=== PATIENT | male | born 1995 | race Caucasian/White ===

== ENCOUNTER 2020-08-05 13:29 | Observation (INO) ==
[2020-08-05 14:17] LABS: Basophils # (auto) 0.01 K/uL (0-0.2); Basophils % (auto) 0.1 %; Eosinophils # (auto) 0.01 K/uL (0-0.5); Eosinophils % (auto) 0.1 %; Hematocrit (blood only) 41.7 % (42-52); Hemoglobin 14.3 g/dL (14.0-18.0); Immature Granulocytes # (auto) 0.02 K/uL (0.00-0.02); Immature Granulocytes % (auto) 0.3 %; Lymphocytes # (auto) 1.25 K/uL (1.2-3.4); Mean Corpuscular Hgb Conc 34.3 g/dL (32-36); Mean Corpuscular Volume 87.4 fL (80-100); Mean Platelet Volume 9.4 fL (7.4-10.4); Monocytes # (auto) 0.58 K/uL (0.11-0.59); Monocytes % (auto) 7.4 %; Neutrophils # (auto) 5.96 K/uL (1.4-6.5); Neutrophils % (auto) 76.1 %; Platelet Count 293 K/uL (130-400); RDW Coefficient of Variation 12.7 % (11.5-14.5); Red Blood Count 4.77 M/uL (4.7-6.1); White Blood Count 7.83 K/uL (4.8-10.8)
--- NOTE | 2020-08-05 14:27 | Emergency Department Note ---
Impression & Plan Pericarditis, Subaortic stenosis, Chest pain, Elevated troponin, Myocarditis ED Provider Note NAME: JULIANA NUNN AGE: 25 SEX: M : 1995 ARRIVES VIA: Walk-In INFORMANT: Patient ED PROVIDER(S): Niles Bolanos DO CHIEF COMPLAINT: Chest pain HPI: Patient is a 25-year-old male with a past medical history of open heart surgery to remove a mass that presents the ER for left upper back pain radiating through to his anterior chest wall and up his left neck. Been present since this past Wednesday. Admits that it is a dull ache. 2 out of 10. Better with sitting up and moving around. Worse with lying flat. Denies any shortness of breath. No belly pain nausea vomiting or diarrhea. He notes he does have a history of any previous aortic issue secondary to the surgery. No other exacerbating or remitting factors. No cough or runny nose. No loss of taste or smell. Patient denies diabetes, hypertension, hyperlipidemia, CAD, history of sudden at a young age, and smoking. ROS: See above HPI for pertinent positives & negatives. A total of 10 systems reviewed and were otherwise negative. PAST MEDICAL HISTORY:See Below PAST SURGICAL HISTORY:See Below FAMILY HISTORY:See Below SOCIAL HISTORY:See Below HOME MEDICATIONS:See Below ALLERGIES:See Below VITALS:See Below PHYSICAL EXAMINATION: GENERAL: Sitting up in bed, alert, well appearing, well nourished, no distress, non-toxic EYE EXAM: normal conjunctiva. PERRL and EOM's grossly intact. OROPHARYNX: Mask in place NECK: supple, no nuchal rigidity, no adenopathy, non-tender LUNGS: Clear to auscultation. Normal chest wall mechanics HEART: no murmurs, S1 normal and S2 normal ABDOMEN: abdomen soft, non-tender, normo-active bowel sounds, no masses, no rebound or guarding. BACK: Back is symmetrical on inspection and there is no deformity, no midline tenderness, no CVA tenderness. SKIN: no rashes and no bruising UPPER EXTREMITIES: upper extremities are grossly normal. Pulses are equal bi lateral. Flexion-extension of bilateral shoulders, elbows, wrist intact. LOWER EXTREMITIES: No pitting edema. Calves are equal bilateral NEURO EXAM: Normal sensorium, cranial nerves II-XII grossly intact, normal speech, no gross weakness of arms, no gross weakness of legs. MEDICAL DECISION MAKING: Patient is a 25-year-old male who presents the ER for 2 days worth of back pain rating through to his anterior chest. IV was established blood work is obtained. Labs show no significant leukocytosis or anemia. INR was unremarkable. BMP was unremarkable. T bili was slightly elevated at 1.7. LFTs were normal. Troponin was elevated 0.192. Lipase was normal. UA was clean. Covid was negative. EKG was not significantly changed from his previous. With his history of aortic issues per his own report has had no records in the presentation CT dissection study was obtained and showed no dissection or PEs. Discussed the case with Dr. Josué Christianson from cardiology who agreed with a stat echo and holding on heparin at this time as history and presentation is most consistent at this point with a likely myopericarditis. Patient was discussed with the hospitalist and will be admitted for further work-up. He was given a dose of aspirin. Doubt ACS and will await echo due to his age and risk factors. Triage Nursing notes reviewed. Prior medical records reviewed Vital Signs: reviewed and remarkable for hypertensive Differential diagnosis: Differential diagnoses includes but is not limited to acute coronary syndrome, myocardial infarction, pericarditis, pulmonary embolus, aortic dissection, pneumonia, pneumothorax, musculoskeletal, shingles, esophageal. ER treatment provided: See below Diagnostics interpreted by me: ECG: Sinus rhythm rate 89 Left axis Left bundle branch block ST depressions in the lateral leads as well as the high lateral leads with flipped T waves T wave inversion in aVL is new in comparison to old on July 23 Cardiac Monitoring: An order was placed for continuous cardiac monitoring. The monitor shows a rate of 85 with sinus rhythm. Laboratory studies: As stated above and show below. Imaging studies: CT dissection study was unremarkable Consultation(s): Discussed with [facility] cardiology as stated above in MDM Discussed with Elaine sherman for admission ED COURSE: Procedures: none Past Med/Surg History Medical History (Updated 08/05/20 @ 20:43 by Niles Bolanos DO) LBBB (left bundle branch block) Subaortic stenosis s/p resection and septal myomectomy Family History Denies family history of Heart disease Social History Smoking Status: Never smoker Hx Alcohol Use: Yes Alcohol Intake Frequency: 2-4 x/Month Feels Safe at Home: Yes Allergies Allergies Allergy/AdvReac Type Severity Reaction Status Date / Time diphenhydramine AdvReac Intermediate makes hyper Unverified 08/05/20 15:41 [From Benadryl] Home Meds Home Medications Medication Instructions Recorded Confirmed peppermint oil [IBgard] 90 mg PO BID PRN 08/05/20 08/05/20 Results & Data (ED) Vital Signs Vital Signs - 24 hr 08/05/20 13:51 08/05/20 14:00 08/05/20 14:02 Temperature 36.9 C Temperature Source Oral Pulse Rate 89 92 H Pulse Rate from SpO2 Sensor 92 H Respiratory Rate 18 20 Blood Pressure 141/84 H 156/96 H Blood Pressure Mean 103 109 Pulse Oximetry 100 100 Oxygen Delivery Method Room Air Sepsis Recent Fever Within 48 Hours No Sepsis New/Unexplained Change in Mental Status No Sepsis Action Taken by Nursing No Action Required 08/05/20 14:07 08/05/20 14:13 08/05/20 14:14 Temperature Temperature Source Oral Pulse Rate 82 Pulse Rate from SpO2 Sensor Respiratory Rate 17 Blood Pressure Blood Pressure Mean Pulse Oximetry Oxygen Delivery Method Room Air Sepsis Recent Fever Within 48 Hours Sepsis New/Unexplained Change in Mental Status Sepsis Action Taken by Nursing 08/05/20 14:30 08/05/20 15:00 08/05/20 15:30 Temperature Temperature Source Pulse Rate 81 96 H 80 Pulse Rate from SpO2 Sensor 83 90 79 Respiratory Rate 18 16 17 Blood Pressure 136/86 154/97 H 142/88 H Blood Pressure Mean 97 110 101 Pulse Oximetry 99 100 100 Oxygen Delivery Method Sepsis Recent Fever Within 48 Hours Sepsis New/Unexplained Change in Mental Status Sepsis Action Taken by Nursing 08/05/20 16:00 08/05/20 16:30 08/05/20 17:00 Temperature Temperature Source Pulse Rate 85 83 84 Pulse Rate from SpO2 Sensor 85 88 Respiratory Rate 18 19 22 Blood Pressure 137/79 147/87 H Blood Pressure Mean 100 97 Pulse Oximetry 100 99 Oxygen Delivery Method Sepsis Recent Fever Within 48 Hours Sepsis New/Unexplained Change in Mental Status Sepsis Action Taken by Nursing 08/05/20 17:30 08/05/20 18:00 08/05/20 18:30 Temperature Temperature Source Pulse Rate 81 85 82 Pulse Rate from SpO2 Sensor 80 83 81 Respiratory Rate 19 15 13 Blood Pressure 123/77 125/81 132/76 Blood Pressure Mean 91 93 104 Pulse Oximetry 100 98 100 Oxygen Delivery Method Sepsis Recent Fever Within 48 Hours Sepsis New/Unexplained Change in Mental Status Sepsis Action Taken by Nursing 08/05/20 19:00 08/05/20 19:30 08/05/20 20:00 Temperature Temperature Source Pulse Rate 83 92 H 75 Pulse Rate from SpO2 Sensor 82 85 76 Respiratory Rate 15 19 16 Blood Pressure 127/74 117/69 145/83 H Blood Pressure Mean 92 90 89 Pulse Oximetry 99 91 98 Oxygen Delivery Method Sepsis Recent Fever Within 48 Hours Sepsis New/Unexplained Change in Mental Status Sepsis Action Taken by Nursing 08/05/20 20:30 Temperature Temperature Source Pulse Rate 80 Pulse Rate from SpO2 Sensor 81 Respiratory Rate 16 Blood Pressure 114/70 Blood Pressure Mean 81 Pulse Oximetry 99 Oxygen Delivery Method Sepsis Recent Fever Within 48 Hours Sepsis New/Unexplained Change in Mental Status Sepsis Action Taken by Nursing Laboratory Data Result diagrams: 08/05/20 13:59 08/05/20 13:59 Lab Results 08/05/20 08/05/20 08/05/20 Range/Units 13:59 13:59 13:59 WBC 7.83 (4.8-10.8) K/uL RBC 4.77 (4.7-6.1) M/uL Hgb 14.3 (14.0-18.0) g/dL Hct 41.7 L (42-52) % MCV 87.4 (80-100) fL MCH 30.0 (25-34) pg MCHC 34.3 (32-36) g/dL RDW Std Deviation 41.0 (36.4-46.3) fL RDW Coeff of Cari 12.7 (11.5-14.5) % Plt Count 293 (130-400) K/uL MPV 9.4 (7.4-10.4) fL Immature Gran % (Auto) 0.3 % Neut % (Auto) 76.1 % Lymph % (Auto) 16.0 % [place] % (Auto) 7.4 % Eos % (Auto) 0.1 % Baso % (Auto) 0.1 % Neut # (Auto) 5.96 (1.4-6.5) K/uL Lymph # (Auto) 1.25 (1.2-3.4) K/uL [place] # (Auto) 0.58 (0.11-0.59) K/uL Eos # (Auto) 0.01 (0-0.5) K/uL Baso # (Auto) 0.01 (0-0.2) K/uL Immature Gran # (Auto) 0.02 (0.00-0.02) K/uL ESR (0-14) mm/hr PT 10.8 (9.0-12.0) Seconds INR 1.0 (0.9-1.1) APTT 28.2 (21.0-31.0) Seconds PTT Ratio 1.0 Sodium 137 (136-145) mmol/L Potassium 3.5 (3.5-5.1) mmol/L Chloride 104 (98-107) mmol/L Carbon Dioxide 28 (21-32) mmol/L Anion Gap 5.0 (3-11) BUN 8 (7-18) mg/dl Creatinine 0.82 (0.6-1.4) mg/dl Est Cr Clr Drug Dosing 141.0 ml/min Est GFR ( Amer) 141.5 Est GFR (Non-Af Amer) 122.0 BUN/Creatinine Ratio 10.3 (10-20) Glucose 84 (70-99) mg/dl Calcium 9.4 (8.5-10.1) mg/dl Total Bilirubin 1.7 H (0.2-1) mg/dl AST 10 L (15-37) U/L ALT 21 (12-78) U/L Alkaline Phosphatase 70 (45-117) U/L Troponin I 0.192 H* (0-0.045) ng/ml C-Reactive Protein (0-0.29) mg/dl Total Protein 8.3 H (6.4-8.2) gm/dl Albumin 4.8 (3.4-5.0) gm/dl Globulin 3.5 (2.5-4.0) gm/dl Albumin/Globulin Ratio 1.4 (0.9-2) Lipase 76 (73-393) U/L Urine Opiates Screen (Neg) Ur Methadone, Qual (Neg) Urine Barbiturates (Neg) Ur Phencyclidine (PCP) (Neg) U Amphetamin/Meth Scrn (Neg) MDMA (Ecstasy) Screen (Neg) U Benzodiazepines Scrn (Neg) Ur Cocaine Metabolite (Neg) U Marijuana (THC) Screen (Neg) SARS-CoV-2 Ag (Rapid) (Negative) 08/05/20 08/05/20 08/05/20 Range/Units 14:04 15:59 16:31 WBC (4.8-10.8) K/uL RBC (4.7-6.1) M/uL Hgb (14.0-18.0) g/dL Hct (42-52) % MCV (80-100) fL MCH (25-34) pg MCHC (32-36) g/dL RDW Std Deviation (36.4-46.3) fL RDW Coeff of Cari (11.5-14.5) % Plt Count (130-400) K/uL MPV (7.4-10.4) fL Immature Gran % (Auto) % Neut % (Auto) % Lymph % (Auto) % [place] % (Auto) % Eos % (Auto) % Baso % (Auto) % Neut # (Auto) (1.4-6.5) K/uL Lymph # (Auto) (1.2-3.4) K/uL [place] # (Auto) (0.11-0.59) K/uL Eos # (Auto) (0-0.5) K/uL Baso # (Auto) (0-0.2) K/uL Immature Gran # (Auto) (0.00-0.02) K/uL ESR 4 (0-14) mm/hr PT (9.0-12.0) Seconds INR (0.9-1.1) APTT (21.0-31.0) Seconds PTT Ratio Sodium (136-145) mmol/L Potassium (3.5-5.1) mmol/L Chloride (98-107) mmol/L Carbon Dioxide (21-32) mmol/L Anion Gap (3-11) BUN (7-18) mg/dl Creatinine (0.6-1.4) mg/dl Est Cr Clr Drug Dosing ml/min Est GFR ( Amer) Est GFR (Non-Af Amer) BUN/Creatinine Ratio (10-20) Glucose (70-99) mg/dl Calcium (8.5-10.1) mg/dl Total Bilirubin (0.2-1) mg/dl AST (15-37) U/L ALT (12-78) U/L Alkaline Phosphatase (45-117) U/L Troponin I (0-0.045) ng/ml C-Reactive Protein 0.73 H (0-0.29) mg/dl Total Protein (6.4-8.2) gm/dl Albumin (3.4-5.0) gm/dl Globulin (2.5-4.0) gm/dl Albumin/Globulin Ratio (0.9-2) Lipase (73-393) U/L Urine Opiates Screen Neg (Neg) Ur Methadone, Qual Neg (Neg) Urine Barbiturates Neg (Neg) Ur Phencyclidine (PCP) Neg (Neg) U Amphetamin/Meth Scrn Neg (Neg) MDMA (Ecstasy) Screen Neg (Neg) U Benzodiazepines Scrn Neg (Neg) Ur Cocaine Metabolite Neg (Neg) U Marijuana (THC) Screen Neg (Neg) SARS-CoV-2 Ag (Rapid) (Negative) 08/05/20 Range/Units Unknown WBC (4.8-10.8) K/uL RBC (4.7-6.1) M/uL Hgb (14.0-18.0) g/dL Hct (42-52) % MCV (80-100) fL MCH (25-34) pg MCHC (32-36) g/dL RDW Std Deviation (36.4-46.3) fL RDW Coeff of Cari (11.5-14.5) % Plt Count (130-400) K/uL MPV (7.4-10.4) fL Immature Gran % (Auto) % Neut % (Auto) % Lymph % (Auto) % [place] % (Auto) % Eos % (Auto) % Baso % (Auto) % Neut # (Auto) (1.4-6.5) K/uL Lymph # (Auto) (1.2-3.4) K/uL [place] # (Auto) (0.11-0.59) K/uL Eos # (Auto) (0-0.5) K/uL Baso # (Auto) (0-0.2) K/uL Immature Gran # (Auto) (0.00-0.02) K/uL ESR (0-14) mm/hr PT (9.0-12.0) Seconds INR (0.9-1.1) APTT (21.0-31.0) Seconds PTT Ratio Sodium (136-145) mmol/L Potassium (3.5-5.1) mmol/L Chloride (98-107) mmol/L Carbon Dioxide (21-32) mmol/L Anion Gap (3-11) BUN (7-18) mg/dl Creatinine (0.6-1.4) mg/dl Est Cr Clr Drug Dosing ml/min Est GFR ( Amer) Est GFR (Non-Af Amer) BUN/Creatinine Ratio (10-20) Glucose (70-99) mg/dl Calcium (8.5-10.1) mg/dl Total Bilirubin (0.2-1) mg/dl AST (15-37) U/L ALT (12-78) U/L Alkaline Phosphatase (45-117) U/L Troponin I (0-0.045) ng/ml C-Reactive Protein (0-0.29) mg/dl Total Protein (6.4-8.2) gm/dl Albumin (3.4-5.0) gm/dl Globulin (2.5-4.0) gm/dl Albumin/Globulin Ratio (0.9-2) Lipase (73-393) U/L Urine Opiates Screen (Neg) Ur Methadone, Qual (Neg) Urine Barbiturates (Neg) Ur Phencyclidine (PCP) (Neg) U Amphetamin/Meth Scrn (Neg) MDMA (Ecstasy) Screen (Neg) U Benzodiazepines Scrn (Neg) Ur Cocaine Metabolite (Neg) U Marijuana (THC) Screen (Neg) SARS-CoV-2 Ag (Rapid) Negative (Negative) Administered Medications Discontinued Medications Aspirin (Aspirin Chew 324 Mg) 324 mg PO NOW STA Stop: 08/05/20 15:23 Last Admin: 08/05/20 15:48 Dose: 324 mg Documented by: [id number] Ioversol (Optiray 320 125ml) 121 ml IV ONCE ONE Stop: 08/05/20 14:55 Last Admin: 08/05/20 14:55 Dose: 121 ml Documented by: [id number] Discharge Plan Visit Data Chief Complaint: Chest Pain Stated Complaint: CHEST PAIN RADIATING TO SHOULDER BLADE AND NECK ED Provider: Niles Bolanos Discharge Problem: Pericarditis, Subaortic stenosis, Chest pain, Elevated troponin, Myocarditis Patient Disposition: Admitted As Inpatient Forms Stand Alone Forms: [facility] Prescriptions Prescriptions: No Action IBgard 90 mg Capsule,Delayed,Extend.Release 90 mg PO BID PRN (Reason: IBS) RF: 0 Referrals Referrals: Bienvenido Fernandez [Primary Care Provider] - Discharge Problem: Pericarditis Qualifiers: Pericarditis type: unspecified type Chronicity: acute Qualified Code(s): I30.9 - Acute pericarditis, unspecified Chest pain Qualifiers: Chest pain type: unspecified Qualified Code(s): R07.9 - Chest pain, unspecified Myocarditis Qualifiers: Myocarditis type: unspecified Chronicity: acute Qualified Code(s): I40.9 - Acute myocarditis, unspecified
[2020-08-05 14:28] LABS: Partial Thromboplastin Time 28.2 Seconds (21.0-31.0); Prothrombin Time 10.8 Seconds (9.0-12.0)
--- NOTE | 2020-08-05 14:29 | XRay Report ---
XR chest 1V portable HISTORY: 25 years-old Male Chest Pain acute atypical chest pain COMPARISON: None TECHNIQUE: Portable AP view the chest FINDINGS: Sternotomy wires. Cardiomediastinal and hilar silhouettes are within normal limits. There is no pneum othorax, pleural effusion, airspace consolidation or overt pulmonary edema. Bones of the chest appear grossly intact. IMPRESSION: No acute process. ACT 112: Negative or not required by law. The above report was generated using voice recognition software. It may contain grammatical, syntax o r spelling errors. Electronically signed by: Alfonzo Warner M.D. 08/05/2020 2:27 PM
[2020-08-05 14:36] LABS: Albumin Level 4.8 gm/dl (3.4-5.0); BUN Creatinine Ratio 10.3 (10-20); Calcium 9.4 mg/dl (8.5-10.1); Est GFR (African American) 141.5; Potassium 3.5 mmol/L (3.5-5.1)
[2020-08-05 14:47] LABS: Albumin Globulin Ratio 1.4 (0.9-2); Bilirubin,Total 1.7 mg/dl (0.2-1); Globulin 3.5 gm/dl (2.5-4.0); Total Protein 8.3 gm/dl (6.4-8.2); Troponin I 0.192 ng/ml (0-0.045)
[2020-08-05] MEDS ORDERED: OPTIRAY 320 125ml IV ONE (14:54)
--- NOTE | 2020-08-05 15:14 | CT Scan Report ---
CT ANGIOGRAM OF THE CHEST COMBO CLINICAL HISTORY: Atypical chest pain. COMPARISON STUDY: Chest x-ray dated 08/05/2020. TECHNIQUE: Before and following the IV administration of 121 cc of Optiray 320, CT angiogram of the c hest was performed from the thoracic inlet to the upper abdomen utilizing the dissection protocol. Im ages are reviewed in the axial, sagittal, and coronal planes. 3-D MIPS images are created and assesse d. IV contrast was administered without complication. A dose lowering technique was utilized adherin g to the principles of ALARA. CT DOSE: 737.78 mGy.cm FINDINGS: Thyroid: Imaged portions of the thyroid gland are normal in size and attenuation. Thoracic aorta: No intramural hematoma is seen on the unenhanced series. The thoracic aorta is normal in caliber and demonstrates 4-vessel variant arch anatomy. The left vertebral artery arises directly from the thoracic aorta. The arch vessels are widely patent. No dissection is seen. Pulmonary vasculature: The pulmonary trunk is normal in caliber. There are no filling defects identif ied in the main, lobar, or segmental pulmonary vessels to suggest pulmonary embolus. Heart: The patient is status post midline sternotomy. The heart is normal in size and without pericar dial effusion. Lungs and pleural spaces: The lungs and pleural spaces are clear. The trachea and central airways are patent. Mediastinum: There is no mediastinal lymphadenopathy. Reyna: Clear. Axillae: There is no axillary lymphadenopathy. Upper abdomen: Partially visualized upper abdominal viscera is within normal limits. Skeletal structures: No lytic or blastic bony lesions are seen. IMPRESSION: 1. Unremarkable CT angiogram of the thoracic aorta. 2. There is no evidence of pulmonary embolus in the main, lobar, or segmental pulmonary arteries. 3. The lungs are clear. ACT 112: Negative or not required by law. Electronically signed by: Dominguez Schmidt M.D. 08/05/2020 3:08 PM
[2020-08-05] MEDS ORDERED: ASPIRIN CHEW 324 MG PO STA (15:22)
[2020-08-05 17:02] LABS: Amphetamines+Metham, Urine Neg (Neg); Barbiturates, Urine Neg (Neg); Benzodiazepine, Urine Neg (Neg); Cocaine, Urine Neg (Neg); MDMA (Ecstacy), Urine Neg (Neg); Methadone, Urine Neg (Neg); Opiate, Urine Neg (Neg); Phencyclidine, Urine Neg (Neg)
--- NOTE | 2020-08-05 17:28 | Cardiology Consultation ---
Date of Consultation August 05, 2020 Assessment & Plan (1) Chest pain: (2) Elevated troponin: (3) Subaortic stenosis: (4) LBBB (left bundle branch block): 25-year-old patient admitted with pleuritic/positional chest discomfort. Initial troponin mildly elevated and nonspecific. Echocardiogram without new regional wall motion abnormality. No pericardial effusion. CT angiogram of the chest without evidence of aortic pathology or pulmonary embolus. COVID-19 testing negative at this time. Patient is afebrile with normal WBC count. Pleuropericarditis suspected with mildly elevated CRP. Sedimentation rate pending at this time. Add colchicine 0.6 mg twice daily. Trend cardiac enzymes x3 sets. Observation on telemetry overnight. History of Present Illness Reason for Consultation: Chest pain, elevated troponin, history of congenital heart disease Requesting Physician: Elaine PEREZ Attending Physician: Shanice Bird History of Present Illness 25-year-old patient with history of subaortic membrane status post resection and during his teenage years presented to the emergency department with left shoulder, scapular, and chest discomfort. He developed left scapular discomfort at approximately 11:45 PM 08/04/2020. Describes a pinching sensation with travel to his shoulder, anterior chest, and neck. There were associated palpitations. He was aware of "heart pounding". He then noted a tightness. Discomfort worse when lying supi ne and improved with sitting upright. The discomfort waxed and waned throughout the evening. He went to work this morning with mild pain. He walked nearly 3 miles however due to mild discomfort he contacted the cardiology office for further advice. It was recommended he proceed to the emergency department. In the ER, initial troponin mildly elevated. Discomfort has improved down to 1/10. He is currently seated upright and comfortable. Requesting diet as he has not eaten today. Denies orthopnea or PND. No cough, sick contacts, fever, or chills. COVID-19 testing is negative. Mildly elevated C-reactive protein. Preliminary review of bedside 2D transthoracic echocardiogram demonstrates preserved LV systolic function with abnormal septal motion secondary to left bundle branch block. The estimated ejection fraction is 60 to 65%. Mild to moderate aortic regurgitation. Isolated basal septal hypertrophy. No LVOT obstruction. Findings unchanged when compared to most recent echocardiogram report dated 2017. Allergies Allergy/AdvReac Type Severity Reaction Status Date / Time diphenhydramine AdvReac Intermediate makes hyper Unverified 08/05/20 15:41 [From Benadryl] Home Medications Medication Instructions Recorded Confirmed Type peppermint oil [IBgard] 90 mg PO BID PRN 08/05/20 08/05/20 History Patient History Medical History (Updated 08/05/20 @ 20:43 by Niles Bolanos DO) LBBB (left bundle branch block) Subaortic stenosis s/p resection and septal myomectomy Family History Denies family history of Heart disease Social History Smoking Status: Never smoker Second Hand Exposure: No; Tobacco Cessation Education Requested by Patient: No Hx Alcohol Use: Yes Alcohol type: beer Alcohol Intake Frequency: 2-4 x/Month Hx Substance Use: No Preferred Language: [place]serratian Communication Ability: Effective Medical Instrument Technician Required: No Beliefs That Will Affect Care: None Current Living Situation: Significant Other Other Information That Helps Us Care for You: No Feels Safe at Home: Yes Safety Concerns: Feels Safe At This Time Assistive Devices: None Review of Systems Review of Systems: All systems reviewed & are unremarkable except as noted in HPI & below Physical Exam Constitutional: well developed and well nourished; no acute distress Respiratory: normal respiratory effort, lungs clear to auscultation no respiratory distress and no labored breathing Auscultation: no crackles, no rales, no rhonchi and no wheezes Cardiovascular: Heart Sounds: normal S1, normal S2 and + murmur (2/6 systolic ejection murmur at the base) Vessels: no JVD and no carotid bruit Extremities: no edema Gastrointestinal (Abdomen): Inspection/Auscultation: abdomen normal to inspection and normal bowel sounds; abdomen not distended Percussion/Palpation: abdomen nontender, no guarding, abdomen not rigid and + abdomen not soft Skin: no rashes, warm and dry Neurologic: PERRL, EOMI, accommodation nl, no face palsy, no dysarthria Motor/Sensory: no tremor Psychiatric: A+Ox3, euthymic affect Results & Data ([facility]) Vital Signs (Past 12 Hours) Vital Signs Temp Pulse Resp BP Pulse Ox 08/05/20 16:30 83 19 08/05/20 16:00 85 18 137/79 100 08/05/20 15:30 80 17 142/88 H 100 08/05/20 15:00 96 H 16 154/97 H 100 08/05/20 14:30 81 18 136/86 99 08/05/20 14:07 82 17 08/05/20 14:00 92 H 20 156/96 H 100 08/05/20 13:51 36.9 C 89 18 141/84 H 100
--- NOTE | 2020-08-05 17:49 | History & Physical Report ---
Date of Service August 05, 2020 Assessment & Plan (1) Chest pain: (2) Elevated troponin: (3) Subaortic stenosis: -Admit to telemetry -Patient presenting from home with reports of left chest, left shoulder, left scapular pain that is noted to be significantly worse when lying down and imp roves with sitting up -History of subaortic stenosis s/p resection and septal myomectomy in 2007 -Troponin 0.192, EKG shows an unchanged LBBB -CTA chest negative for PE and acute aortic abnormality -Echo negative for pericardial effusion, no wall motion abnormality -? Pleuropericarditis; mildly elevated CRP 0.73, ESR pending -Serial cardiac enzymes -Cardiology consult, input appreciated -started patient on colchicine (4) DVT prophylaxis: -SCDs History of Present Illness Chief Complaint: Chest pain Primary Care Provider: Bienvenido Fernandez 25-year-old male with PMH subaortic stenosis s/p resection and septal myomectomy in 2007 who presents the ED for evaluation of chest pain. Patient reports that yesterday, he developed left chest, left shoulder, left scapular pain. Pain was worse whenever he laid flat to try to sleep last evening. Reports pain improved with sitting up. Patient denies any associated shortness of breath. Reports a pounding heartbeat. No lightheadedness, dizziness, diapho resis, syncopal events. Reports he otherwise has been feeling well recently. No other recent illnesses, fevers, chills. He denies abdominal pain, nausea, vomiting, diarrhea. No urinary symptoms. In the ED, troponin mildly elevated 0.192. EKG shows an unchanged LBBB. CTA chest negative for PE and other acute findings. Patient is hemodynamically stable. He was given a full dose aspirin. Patient reports he is currently chest pain-free. Allergies Allergy/AdvReac Type Severity Reaction Status Date / Time diphenhydramine AdvReac Intermediate makes hyper Unverified 08/05/20 15:41 [From Benadryl] Home Medications Medication Instructions Recorded Confirmed Type peppermint oil [IBgard] 90 mg PO BID PRN 08/05/20 08/05/20 History Past Med/Surg History Medical History (Updated 08/05/20 @ 20:43 by Niles Bolanos DO) LBBB (left bundle branch block) Subaortic stenosis s/p resection and septal myomectomy Family History Denies family history of Heart disease Social History Smoking Status: Never smoker Second Hand Exposure: No; Tobacco Cessation Education Requested by Patient: No Hx Alcohol Use: Yes Alcohol type: beer Alcohol Intake Frequency: 2-4 x/Month Hx Substance Use: No Preferred Language: Bur[place]ian Communication Ability: Effective Detail Drafter Required: No Beliefs That Will Affect Care: None Current Living Situation: Significant Other Other Information That Helps Us Care for You: No Feels Safe at Home: Yes Safety Concerns: Feels Safe At This Time Assistive Devices: None Review of Systems Review of Systems: ROS per HPI, all other systems reviewed and negative Physical Exam Constitutional: WD/WN, vitals as above Eyes: PERRL, conjunctivae normal, anicteric sclerae ENMT: external ear and nose normal, oropharynx normal Respiratory: normal respiratory effort, lungs clear to auscultation Cardiovascular: Rate/Rhythm: regular rate and regular rhythm Vessels: normal peripheral pulses Extremities: no edema Gastrointestinal (Abdomen): normal bowel sounds, soft, nontender, no hepatosplenomegaly Musculoskeletal: no cyanosis or clubbing, extremities motor strength 5/5 Skin: no rashes, warm and dry Neurologic: PERRL, EOMI, accommodation nl, no face palsy, no dysarthria Psychiatric: A+Ox3, euthymic affect Results & Data Results & Data ([facility]) Vital Signs (Past 12 Hours) Vital Signs Temp Pulse Resp BP Pulse Ox 08/05/20 16:30 83 19 08/05/20 16:00 85 18 137/79 100 08/05/20 15:30 80 17 142/88 H 100 08/05/20 15:00 96 H 16 154/97 H 100 08/05/20 14:30 81 18 136/86 99 08/05/20 14:07 82 17 08/05/20 14:00 92 H 20 156/96 H 100 08/05/20 13:51 36.9 C 89 18 141/84 H 100 Laboratory Results Short CBC 08/05/20 Range/Units 13:59 WBC 7.83 (4.8-10.8) K/uL Hgb 14.3 (14.0-18.0) g/dL Hct 41.7 L (42-52) % Plt Count 293 (130-400) K/uL BMP 08/05/20 13:59 Sodium 137 Potassium 3.5 Chloride 104 Carbon Dioxide 28 BUN 8 Creatinine 0.82 Glucose 84 Calcium 9.4 Cardiac Enzymes 08/05/20 Range/Units 13:59 Troponin I 0.192 H* (0-0.045) ng/ml Liver Function 08/05/20 Range/Units 13:59 Total Bilirubin 1.7 H (0.2-1) mg/dl AST 10 L (15-37) U/L ALT 21 (12-78) U/L Alkaline Phosphatase 70 (45-117) U/L Albumin 4.8 (3.4-5.0) gm/dl Diagnostic Findings CXR IMPRESSION: No acute process. CTA CHEST IMPRESSION: 1. Unremarkable CT angiogram of the thoracic aorta. 2. There is no evidence of pulmonary embolus in the main, lobar, or segmental pulmonary arteries. 3. The lungs are clear. Code Status & VTE Plan VTE Prophylaxis Plan VTE Prophylaxis will be ordered: Yes Supervising Physician Co-Signing Physician Notes Patient is a 25-year-old male with history of subaortic stenosis S/P resection and septal myomectomy, irritable bowel syndrome and other medical problems presents with history of positional left-sided chest pain. He states that the chest pain worsens when lying down. His pain radiated to the left shoulder/scapular region. He denies any nausea, diaphoresis, shortness of breath, syncope, recent infections, fever, chills. Echo showed no wall motion abnormality. EKG showed chronic left bundle branch block. Initial troponin mildly elevated. On exam patient is thin, no apparent distress, normocephalic atraumatic, lungs are clear to auscultation, normal breath sounds, S1-S2,+ murmur, no pedal edema, abdomen soft, nontender, normal bowel sounds, alert, awake, oriented, grossly no focal neurological deficits. Patient is admitted for management of chest pain DD: Pericarditis, also to rule out ACS. Appreciate cardiology input. Started on colchicine. Will trend cardiac enzymes and repeat EKG in the morning. We will also check lipid panel and keep him n.p.o. after midnight. Currently he is chest pain-free. Further management as per cardiology. I personally reviewed the record. Patient is interviewed and examined at bedside. Patient's care is coordinated with Elaine Dalton WATERPROOFER. Please refer to the documentation above for details of patient's presentation and for discussion of other issues.
[2020-08-05] MEDS ORDERED: ACETAMINOPHEN 325 MG TAB PO PRN (21:30)
[2020-08-05] MEDS: COLCHICINE 0.6 MG TAB PO SCH (21:58)
[2020-08-06 03:46] LABS: Hemoglobin 14.1 g/dL (14.0-18.0); Mean Corpuscular Hemoglobin 30.1 pg (25-34); Mean Corpuscular Hgb Conc 34.4 g/dL (32-36); Mean Corpuscular Volume 87.4 fL (80-100); Mean Platelet Volume 9.4 fL (7.4-10.4); Platelet Count 280 K/uL (130-400); RDW Coefficient of Variation 12.9 % (11.5-14.5); RDW Standard Deviation 41.5 fL (36.4-46.3); Red Blood Count 4.69 M/uL (4.7-6.1); White Blood Count 7.32 K/uL (4.8-10.8)
[2020-08-06 04:02] LABS: BUN Creatinine Ratio 10.7 (10-20); Calcium 8.9 mg/dl (8.5-10.1); Creatinine Clr Calc Pharmacy 129.9 ml/min; Est GFR (African American) 136.8; Magnesium 2.4 mg/dl (1.8-2.4); Potassium 3.9 mmol/L (3.5-5.1)
[2020-08-06 04:11] LABS: Troponin I 0.629 ng/ml (0-0.045)
--- NOTE | 2020-08-06 06:19 | Electrocardiogram Report ---
Test Reason : Blood Pressure : / mmHG Vent. Rate : 089 BPM Atrial Rate : 089 BPM P-R Int : 156 ms QRS Dur : 166 ms QT Int : 394 ms P-R-T Axes : 068 -10 118 degrees QTc Int : 479 ms Sinus rhythm Left bundle branch block Abnormal ECG No previous ECGs available Confirmed by Ari Stringer ([id number]) on 08/06/2020 6:18:34 AM Referred By: Confirmed By:Ari Stringer
[2020-08-06] MEDS: COLCHICINE 0.6 MG TAB PO SCH (08:54)
--- NOTE | 2020-08-06 10:49 | Cardiology Progress Note ---
Date of Service August 06, 2020 Assessment & Plan (1) Myopericarditis: (2) Elevated troponin: (3) Subaortic stenosis: (4) LBBB (left bundle branch block): 25-year-old admitted with pleuritic chest pain and suspected myopericarditis. Mildly elevated troponin I trending downward. Symptoms have resolved. No regional wall motion abnormalities per echocardiogram. Mildly elevated C- reactive protein noted. Patient tolerating colchicine. Recommend continue colchicine 0.6 mg twice daily. Will discharge patient to home today with plans for close cardiology follow-up in 1 week. He will remain off work until follow- up appointment. Admission and Anticipated Discharge Date Admission Date: August 05, 2020 Subjective Patient seen and examined at the bedside. Feeling well from a cardiovascular perspective today. Troponin trending downward. No recurrent chest pain overnight. Denies pain with lying supine or deep inspiration currently. Tolerated 2 doses of colchicine. No abdominal discomfort, nausea, or vomiting. Requesting a.m. diet. No fevers or chills. Telemetry demonstrates sinus rhythm with left bundle branch block. Patient requesting discharge if possible. Review of Systems Review of Systems: All systems reviewed & are unremarkable except as noted in HPI & below Physical Exam Constitutional: well developed and well nourished; no acute distress Respiratory: normal respiratory effort, lungs clear to auscultation no respiratory distress and no labored breathing Auscultation: no crackles, no rales, no rhonchi and no wheezes Cardiovascular: Heart Sounds: normal S1, normal S2 and + murmur (2/6 systolic ejection murmur at the base) Vessels: no JVD and no carotid bruit Extremities: no edema Gastrointestinal (Abdomen): Inspection/Auscultation: abdomen normal to inspection and normal bowel sounds; abdomen not distended Percussion/Palpation: abdomen nontender, no guarding, abdomen not rigid and + abdomen not soft Skin: no rashes, warm and dry Neurologic: PERRL, EOMI, accommodation nl, no face palsy, no dysarthria Motor/Sensory: no tremor Psychiatric: A+Ox3, euthymic affect Results & Data ([facility]) Vital Signs (Past 12 Hours) Vital Signs Temp Pulse Pulse Resp BP Pulse Ox 08/06/20 10:08 76 08/06/20 08:06 37.0 C 76 17 121/75 100 08/06/20 04:00 36.7 C 76 18 122/78 97 08/05/20 23:46 37.1 C 96 H 18 103/41 L 98
--- NOTE | 2020-08-06 13:53 | Hospitalist Progress Note ---
Date of Service August 06, 2020 Assessment & Plan (1) Chest pain: (2) Elevated troponin: (3) Subaortic stenosis: Present on admission with left sided chest, left shoulder, left scapular pain that is noted to be significantly worse when lying down and improves with sitting up History of subaortic stenosis s/p resection and septal myomectomy in 2007 Troponin on admission 0.192, then peak to 0.629, now trending down to 0.576 EKG showed no acute ischemia CTA chest negative for PE and acute aortic abnormality COVID 19 negative , ESR normal and Elevated CRP Echo showed negative for pericardial effusion, no wall motion abnormality Tele monitor showed LBBB cardio on board recommended to continue Colchicine 0.6mg BID Ok from cardiology standpoint to discharge home today Follow up with cardiology in 1 week Code status full code (4) DVT prophylaxis: -SCDs Admission and Anticipated Discharge Date Admission Date: August 05, 2020 Subjective Pt was seen and examined Lying in bed with no distress Pt said that he feels fine He denies any chest pain since yesterday He said that he feels ready to go home today Denies any chest pain, palpitation, dizziness and SOB Physical Exam Physical Exam: General- No acute distress Head- atraumatic Eyes- PERRL, EOMI, ENT- oropharynx clear Neck- supple, no JVD Lungs- clear to auscultation Heart- regular rhythm; +murmur Abdomen- normal bowel sounds, soft, nontender Extremities- no calf tenderness Neuro- alert, oriented x 3; PERRL, EOMI; no facial palsy; no dysarthria Skin- warm & dry Results & Data Results & Data ([facility]) Vital Signs (Past 12 Hours) Vital Signs Temp Pulse Pulse Resp BP Pulse Ox 08/06/20 12:00 37.0 C 71 18 129/77 99 08/06/20 10:08 76 08/06/20 08:06 37.0 C 76 17 121/75 100 08/06/20 04:00 36.7 C 76 18 122/78 97 (1) Chest pain Chest pain type: unspecified Qualified Code(s): R07.9 - Chest pain, unspecified
--- NOTE | 2020-08-07 04:51 | Electrocardiogram Report ---
Test Reason : Blood Pressure : / mmHG Vent. Rate : 077 BPM Atrial Rate : 077 BPM P-R Int : 154 ms QRS Dur : 164 ms QT Int : 398 ms P-R-T Axes : 059 -15 121 degrees QTc Int : 450 ms Normal sinus rhythm Left bundle branch block Abnormal ECG When compared with ECG of 05-AUG-2020 13:54, No significant change was found Confirmed by Ari Stringer ([id number]) on 08/07/2020 4:51:06 AM Referred By: REFERRED SELF Confirmed By:Ari Stringer
--- NOTE | 2020-08-07 14:42 | Discharge Summary ---
Date of Service August 06, 2020 Admission HPI Per Admitting Provider 25-year-old male with PMH subaortic stenosis s/p resection and septal myomectomy in 2007 who presents the ED for evaluation of chest pain. Patient reports that yesterday, he developed left chest, left shoulder, left scapular pain. Pain was worse whenever he laid flat to try to sleep last evening. Reports pain improved with sitting up. Patient denies any associated shortness of breath. Reports a pounding heartbeat. No lightheadedness, dizziness, diaphoresis, syncopal events. Reports he otherwise has been feeling well recently. No other recent illnesses, fevers, chills. He denies abdominal pain, nausea, vomiting, diarrhea. No urinary symptoms. In the ED, troponin mildly elevated 0.192. EKG shows an unchanged LBBB. CTA chest negative for PE and other acute findings. Patient is hemodynamically stable. He was given a full dose aspirin. Patient reports he is currently chest pain-free. Admission Exam Per Admitting Provider Constitutional: WD/WN, vitals as above Eyes: PERRL, conjunctivae normal, anicteric sclerae ENMT: external ear and nose normal, oropharynx normal Respiratory: normal respiratory effort, lungs clear to auscultation Cardiovascular: regular rate and regular rhythm Vessels: normal peripheral pulses Extremities: no edema Gastrointestinal: normal bowel sounds, soft, nontender, no hepatosplenomegaly Musculoskeletal: no cyanosis or clubbing, extremities motor strength 5/5 Skin: no rashes, warm and dry Neurologic: PERRL, EOMI, accommodation nl, no face palsy, no dysarthria Psychiatric: A+Ox3, euthymic affect Principal Diagnosis (1) Chest pain: (2) Elevated troponin: (3) Subaortic stenosis: Discharge Exam General- No acute distress Head- atraumatic Eyes- PERRL, EOMI, ENT- oropharynx clear Neck- supple, no JVD Lungs- clear to auscultation Heart- regular rhythm; +murmur Abdomen- normal bowel sounds, soft, nontender Extremities- no calf tenderness Neuro- alert, oriented x 3; PERRL, EOMI; no facial palsy; no dysarthria Skin- warm & dry Discharge Data Allergies Allergy/AdvReac Type Severity Reaction Status Date / Time diphenhydramine AdvReac Intermediate makes hyper Unverified 08/05/20 15:41 [From Ronnie] Consultations 08/05/20 15:57 ED Decision to Admit Stat 08/05/20 21:30 Consult Cardiology Routine Ordered Studies 08/05/20 14:24 CT angio chest dissec wo/w con Stat CT ANGIOGRAM OF THE CHEST COMBO CLINICAL HISTORY: Atypical chest pain. COMPARISON STUDY: Chest x-ray dated 08/05/2020. TECHNIQUE: Before and following the IV administration of 121 cc of Optiray 320, CT angiogram of the chest was performed from the thoracic inlet to the upper abdomen utilizing the dissection protocol. Images are reviewed in the axial, sagittal, and coronal planes. 3-D MIPS images are created and assessed. IV contrast was administered without complication. A dose lowering technique was utilized adhering to the principles of ALARA. CT DOSE: 737.78 mGy.cm FINDINGS: Thyroid: Imaged portions of the thyroid gland are normal in size and attenuation. Thoracic aorta: No intramural hematoma is seen on the unenhanced series. The thoracic aorta is normal in caliber and demonstrates 4-vessel variant arch anatomy. The left vertebral artery arises directly from the thoracic aorta. The arch vessels are widely patent. No dissection is seen. Pulmonary vasculature: The pulmonary trunk is normal in caliber. There are no filling defects identified in the main, lobar, or segmental pulmonary vessels to suggest pulmonary embolus. Heart: The patient is status post midline sternotomy. The heart is normal in size and without pericardial effusion. Lungs and pleural spaces: The lungs and pleural spaces are clear. The trachea and central airways are patent. Mediastinum: There is no mediastinal lymphadenopathy. Reyna: Clear. Axillae: There is no axillary lymphadenopathy. Upper abdomen: Partially visualized upper abdominal viscera is within normal limits. Skeletal structures: No lytic or blastic bony lesions are seen. IMPRESSION: 1. Unremarkable CT angiogram of the thoracic aorta. 2. There is no evidence of pulmonary embolus in the main, lobar, or segmental pulmonary arteries. 3. The lungs are clear. ACT 112: Negative or not required by law. Electronically signed by: Dominguez Schmidt M.D. 08/05/2020 3:08 PM Dictated: 08/05/20 1502Transcribed: 08/05/20 1502 XR chest 1V portable HISTORY: 25 years-old Male Chest Pain acute atypical chest pain COMPARISON: None TECHNIQUE: Portable AP view the chest FINDINGS: Sternotomy wires. Cardiomediastinal and hilar silhouettes are within normal limits. There is no pneumothorax, pleural effusion, airspace consolidation or overt pulmonary edema. Bones of the chest appear grossly intact. IMPRESSION: No acute process. ACT 112: Negative or not required by law. The above report was generated using voice recognition software. It may contain grammatical, syntax or spelling errors. Electronically signed by: Alfonzo Warner M.D. 08/05/2020 2:27 PM Dictated: 08/05/201425Transcribed: 08/05/201425 Hospital Course (1) Chest pain: (2) Elevated troponin: (3) Subaortic stenosis: Present on admission with left sided chest, left shoulder, left scapular pain that is noted to be significantly worse when lying down and improves with sitting up History of subaortic stenosis s/p resection and septal myomectomy in 2007 Troponin on admission 0.192, then peak to 0.629, now trending down to 0.576 EKG showed no acute ischemia CTA chest negative for PE and acute aortic abnormality COVID 19 negative , ESR normal and Elevated CRP Echo showed negative for pericardial effusion, no wall motion abnormality Tele monitor showed LBBB cardio on board recommended to continue Colchicine 0.6mg BID Ok from cardiology standpoint to discharge home today Follow up with cardiology in 1 week Code status full code (4) DVT prophylaxis: -SCDs Total Time Total Time Spent Total Time Spent (In Minutes): 35 minutes Total Time Includes: Examination of the Patient, Discharge Planning, Medication Reconciliation, Communication With Other Providers and Other Discharge Plan Discharge Items Patient Disposition: Home - Self-Care Reason For Visit: CHEST PAIN Discharge Diagnosis: (1) Chest pain: (2) Elevated troponin: (3) Subaortic stenosis: Activity: As commented below Non-emergency contact: Primary Care Provider Call non-emergency contact if: you have any medication questions Follow-up/Referrals: Bienvenido Fernandez [Primary Care Provider] - Diet: Regular Addtl Attending Provider Instructions: Follow up with your primary care provider dr. Fernandez in 1 week (Please call to schedule for the follow up appointment) Follow up with your cardiology Dr. Christianson in 1 week (Please call cardiology's office if no one call for the appointment) Increase your activity gradually as tolerated Seek medical attention if chest pain reoccurs or worsening Pending Studies at Discharge: No Stand-Alone Forms: My [facility], Smoking Cessation Medications and DC Order Prescriptions: New colchicine [Colcrys] 0.6 mg Tablet 0.6 mg PO BID Qty: 30 RF: 0 Continued IBgard 90 mg Capsule,Delayed,Extend.Release 90 mg PO BID PRN (Reason: IBS) RF: 0 Discharge Orders: Discharge Order (Routine); Ordered 08/06/20 Ordered By: Karey Jay Admission Data Admit Date/Time: 08/05/20 16:32 Attending Provider: Karey Jay Admit Provider: Ayad Dickinson Primary Care Provider: Bienvenido Fernandez Other Providers: Ayad Dickinson ; [place] Christianson Other Interventions: Discharge Summary Assessment (RN) Last Done: 08/06/20 14:39
== END 2020-08-06 15:31 | disposition home or self-care (01) ==
LOC: 2S 13:29 → ED 13:29 → SUATTDRO 16:32 → 2S 20:45